=== PATIENT | female | born 1985 | race Two or more races ===

== ENCOUNTER 2018-05-13 00:50 | Emergency (ER) | payer OTHER ==
[~2018-05-13] VITALS: Ht 160 cm; Wt 52.2 kg
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
[2018-05-13] MEDS ORDERED: SUMATRIPTAN SUCCINATE 6 MG/0.5 ML VIAL SQ ONE ×2 (01:22→01:30)
[2018-05-13] MEDS ORDERED: METOCLOPRAMIDE HCL 10 MG/2 ML VIAL ONE (01:22)
[2018-05-13] MEDS ORDERED: IV NS 0.9% 1,000 ML BAG IV ONE (01:30)
[2018-05-13] MEDS ORDERED: METOCLOPRAMIDE HCL 10 MG/2 ML VIAL IV ONE (01:30)
--- NOTE | 2018-05-13 01:50 | NUR ---
PT TO RESTROOM
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
--- NOTE | 2018-05-13 02:30 | NUR ---
[employer] BEDSIDE WITH PT
[2018-05-13 02:53] VITALS: BP 129/85
--- NOTE | 2018-05-13 02:53 | NUR ---
Patient discharged to home in stable condition. Written and verbal after care instructions given. Patient verbalizes understanding of instruction.IV removed. Catheter intact and site benign. Pressure and 4x4 applied to site. No bleeding noted. VSS UPON DISCHARGE
== END 2018-05-13 02:55 | disposition home or self-care (01) ==
LOC: ER 00:55
DX: G43.909 Migraine, unspecified, not intractable, without status migrainosus (principal); F41.9 Anxiety disorder, unspecified
CPT/HCPCS: 96372; 96374; 99284; J2765; J3030; J7030; Z7610